=== PATIENT | male | born 1975 | race Caucasian/White ===

== ENCOUNTER → 2020-04-04 14:10 | Outpatient (BNVA) | payer OTHER, SELFPAY | PROVIDERS: Family Provider Thoracic Surgery (Cardiothoracic Vascular Surgery); PCP Nurse Practitioner Family; Visit Provider Nurse Practitioner Family | DX: I10 Essential (primary) hypertension (principal); E55.9 Vitamin D deficiency, unspecified; E78.2 Mixed hyperlipidemia; R19.7 Diarrhea, unspecified | CPT/HCPCS: 80053; 80061; 81003; 82306; 83036; 84443; 85025 ==

== ENCOUNTER 2020-04-11 15:57 | Outpatient (CLI) | payer OTHER, SELFPAY ==
--- NOTE | 2020-04-11 16:11 | XR_ITS ---
WS: [id number] EXAM: RIGHT KNEE: 3 VIEWS DATE OF EXAMINATION: 04/11/2020, 1621 hours COMPARISON: Left knee exam from the same date. HISTORY: Patient is 45 years old with chronic right knee pain. FINDINGS: Bone density is normal in appearance. There are slight changes of arthritis in the knee mainly in the medial and patellofemoral compartments. No joint effusion is seen. No fracture, lytic or blastic pro cess. Extra articular soft tissues are unremarkable XR/XR knee RT 3V* [id number] IMPRESSION: Slight changes of osteoarthritis in the right knee. No acute abnormality.
--- NOTE | 2020-04-11 16:16 | XR_ITS ---
WS: [id number] EXAM: LEFT KNEE: 3 VIEWS DATE OF EXAMINATION: 04/11/2020, 1621 hours COMPARISON: None. HISTORY: Patient is 45 years old with chronic left knee pain. FINDINGS: Bone density is normal in appearance. There are slight changes of arthritis in the knee mainly in the medial and patellofemoral compartments. No joint effusion is seen. No fracture, lytic or blastic pro cess. Extra articular soft tissues are unremarkable XR/XR knee LT 3V* [id number] IMPRESSION: Slight changes of osteoarthritis in the left knee. No acute abnormality.
== END 2020-04-11 15:58 | disposition home or self-care (01) ==
LOC: RAD 16:00
PROVIDERS: PCP Nurse Practitioner Family; Visit Provider Nurse Practitioner Family
DX: G89.29 Other chronic pain (principal); M17.12 Unilateral primary osteoarthritis, left knee
CPT/HCPCS: 73562

== ENCOUNTER 2021-05-03 10:50 | Emergency (ER) | payer OTHER, SELFPAY ==
[2021-05-03 11:17] VITALS: BP 163/90; PULSE 68; RESP 16; TEMP 36.6; O2SAT 95; BMI 54.2
--- NOTE | 2021-05-03 11:33 | XR_ITS ---
WS: [id number] Portable AP upright chest, 05/03/2021 Clinical Data: presyncope Comparison: PA and lateral chest, 05/07/2019. Findings: No nodules, masses or effusions are seen. The heart is slightly enlarged. The pulmonary vas cularity is not increased. No pneumonia or pneumothorax is seen. Old bilateral rib fractures are note d. XR/XR chest 1V portable [id number] Impression: Cardiomegaly.
--- NOTE | 2021-05-03 13:34 | ECG_ITS ---
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 Measurements Intervals [place] Rate: 61 P: 35 AK: 167 QRS: 11 QRSD: 98 T: 18 QT: 436 QTc: 440 Interpretive Statements SINUS RHYTHM No previous ECG available for comparison Electronically Signed On 05-04-2021 9:30:15 CDT by Dasia Fortune M.D. [id number] f
--- NOTE | 2021-05-03 14:58 | W.ED.SYNCOPE ---
HPI - Syncope General: Chief Complaint: Syncope Stated Complaint: near syncope Time Seen by Provider: 05/03/21 14:54 History of Present Illness: HPI narrative: 46 yo morbidly obese male presents to the emergency room after an episode of near syncope while he was at work today. He had stood up he got lightheaded dizzy felt diaphoretic very nauseous never did completely lose consciousness. He has a chest pain work-up ongoing is possible getting a stress test soon. MD complaint: felt faint and almost passed out Onset (ago): hour(s) -: second(s) Prodromal symptoms: lightheaded, diaphoresis and nausea/vomiting Witnessed: Yes - by Bystander Context: during exertion Injuries sustained associated with event: none Associated symptoms: Reports lightheadedness, nausea and short of breath; Deny abdominal pain, chest pain, fever(s), headache(s), vertigo or weakness Treatments prior to arrival: none Review of Systems Const: Denies: fever(s) Card: Reports: lightheadedness; Denies: chest pain GI: Reports: nausea; Denies: abdominal pain Neuro: Denies: headache(s) or vertigo PFSH ED PFSH: Medical History Adult-onset obesity Anxiety Essential hypertension Gastro-esophageal reflux Low back strain Lower respiratory infection Mixed hyperlipidemia Osteoarthritis Shortness of breath Vitamin D deficiency Surgical History History of tonsillectomy and adenoidectomy Social History Smoking and tobacco status: never smoked Second hand smoke exposure: No Smoking risk assessment/counseling performed?: No Alcohol intake: never Desire information about alcohol rehabilitation?: No Counseling given: No Desire information about substance/drug rehabilitation?: No Counseling given: No 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 Physical Exam Const: COMMON NORMALS: no acute distress GENERAL APPEARANCE: cooperative and comfortable ORIENTATION/CONSCIOUSNESS: Yes awake, Yes oriented to person, Yes oriented to place and Yes oriented to time HENMT: COMMON NORMALS: normocephalic, atraumatic and hearing grossly normal bilaterally HEAD & SCALP: normocephalic and atraumatic Neck/C-Spine: COMMON NORMALS: no JVD Resp: COMMON NORMALS: normal respiratory effort, No retractions, No use of accessory muscles and clear to auscultation bilaterally AUSCULTATION: clear to auscultation bilaterally Cardio: COMMON NORMALS: no JVD, regular rate, regular rhythm and No murmurs present (Cardio) RATE: regular rate RHYTHM: regular rhythm GI: COMMON NORMALS: Soft to palpation and No hepatosplenomegaly present AUSCULTATION: Yes normoactive bowel sounds PALPATION: Yes Soft to palpation, No Tenderness to palpation present (GI), No Guarding due to palpation present (GI) and Yes No hepatosplenomegaly present Extremity: COMMON NORMALS: normal to inspection, capillary refill normal, no clubbing, cyanosis or edema, no calf tenderness and no pedal edema Neuro: SENSORIUM/ORIENTATION: Yes oriented to person, Yes oriented to place and Yes oriented to time Skin: COMMON NORMALS: no rashes or lesions noted GENERAL SKIN EXAM: no rashes or lesions noted Course Vital Signs: Vital signs: Vital Signs Temperature 98 F 05/03/21 11:17 Pulse Rate 64 05/03/21 17:47 Respiratory Rate 14 05/03/21 17:47 Blood Pressure 121/103 05/03/21 17:47 Pulse Oximetry 100 05/03/21 17:47 MDM - Syncope MDM Narrative: Medical decision making narrative: Enzymes are negative. EKG is unremarkable reviewed labs imaging and EKGs on the chart. Discussed with the patient he has an upcoming stress test scheduled. We will go ahead and let him complete that if he has any recurrent symptoms return to the emergency room otherwise continue all his current medications. Avoid strenuous activities Lab Data: Labs: Lab Results 05/03/21 05/03/21 05/03/21 Range/Units 15:00 15:00 15:00 WBC 10.3 H (4.0-10.0) 10^3/ uL RBC 4.88 (4.1-5.3) 10^6/u L Hgb 13.7 (11.7-16.6) g/dL Hct 42.1 (42.0-52.0) % MCV 86.3 (80-94) fl MCH 28.1 (28.0-34.0) pg MCHC 32.5 (30.0-36.0) g/dL RDW 12.9 (12.1-15.1) % Plt Count 254 (130-400) 10^3/c mm MPV 9.5 (7.4-10.4) fL Neut % (Auto) 71.8 % Lymph % (Auto) 20.6 % Towns % (Auto) 5.3 % Eos % (Auto) 1.4 % Baso % (Auto) 0.6 % Neut # (Auto) 7.41 (1.8-7.7) 10^3/u L Lymph # (Auto) 2.1 (0.8-4.8) 10^3/u L Towns # (Auto) 0.6 (0.2-0.9) 10^3/u L Eos # (Auto) 0.1 (0.0-0.8) 10^3/u L Baso # (Auto) 0.1 (0.0-0.1) 10^3/u L Nucleated RBC % (a uto) 0 % Nucleated RBCs # 0.0 /100WBC Sodium 139 (136-145) mmol/L Potassium 4.0 (3.5-5.1) mmol/L Chloride 99 (98-107) mmol/L Carbon Dioxide 29 (22-29) mmol/L Anion Gap 15.0 (5-19) BUN 13 (6-20) mg/dL Creatinine 0.7 (0.7-1.2) mg/dL GFR Calculation 120.4 (90-130) mL/min Glucose 86 (65-115) mg/dL Calculated Osmolal ity 287 (285-295) mOsm/k g Calcium 9.0 (8.5-10.5) mg/dL Total Bilirubin 0.3 (0.15-1.2) mg/dL AST 20 (0-40) U/L ALT 23 (0-41) U/L Alkaline Phosphata se 95 (40-130) IU/L Troponin T Baselin e 6 (0-15) ng/L Troponin T 120 Min [place] (0-15) ng/L Delta Troponin T (0-10) ABS# Total Protein 7.1 (6.6-8.7) g/dL Albumin 4.2 (3.5-5.2) g/dL Globulin 2.9 (1.3-4.6) g/dL TSH 0.55 (0.27-4.20) uIU/ mL 05/03/21 Range/Units 16:48 WBC (4.0-10.0) 10^3/ uL RBC (4.1-5.3) 10^6/u L Hgb (11.7-16.6) g/dL Hct (42.0-52.0) % MCV (80-94) fl MCH (28.0-34.0) pg MCHC (30.0-36.0) g/dL RDW (12.1-15.1) % Plt Count (130-400) 10^3/c mm MPV (7.4-10.4) fL Neut % (Auto) % Lymph % (Auto) % Towns % (Auto) % Eos % (Auto) % Baso % (Auto) % Neut # (Auto) (1.8-7.7) 10^3/u L Lymph # (Auto) (0.8-4.8) 10^3/u L Towns # (Auto) (0.2-0.9) 10^3/u L Eos # (Auto) (0.0-0.8) 10^3/u L Baso # (Auto) (0.0-0.1) 10^3/u L Nucleated RBC % (a uto) % Nucleated RBCs # /100WBC Sodium (136-145) mmol/L Potassium (3.5-5.1) mmol/L Chloride (98-107) mmol/L Carbon Dioxide (22-29) mmol/L Anion Gap (5-19) BUN (6-20) mg/dL Creatinine (0.7-1.2) mg/dL GFR Calculation (90-130) mL/min Glucose (65-115) mg/dL Calculated Osmolal ity (285-295) mOsm/k g Calcium (8.5-10.5) mg/dL Total Bilirubin (0.15-1.2) mg/dL AST (0-40) U/L ALT (0-41) U/L Alkaline Phosphata se (40-130) IU/L Troponin T Baselin e (0-15) ng/L Troponin T 120 Min [place] 6.00 (0-15) ng/L Delta Troponin T 0 (0-10) ABS# Total Protein (6.6-8.7) g/dL Albumin (3.5-5.2) g/dL Globulin (1.3-4.6) g/dL TSH (0.27-4.20) uIU/ mL Discharge Plan Discharge Patient Disposition: Home Clinical Impression: Near syncope, Atypical chest pain Condition: Stable Prescriptions: No Action nitroglycerin 0.4 mg tablet, sublingual 0.4 mg sublingual Q5M PRN (Reason: chest pain) 30 Days Qty: 30 RF: 0 Calcium + D 600 mg(1,500mg) -200 unit Tablet 1 tab PO DAILY RF: 0 atorvastatin 40 mg tablet 40 mg PO QAM RF: 0 atenolol-chlorthalidone 100-25 mg tablet 1 tab PO QAM RF: 0 omeprazole 40 mg capsule,delayed release(DR/EC) 40 mg PO QAM RF: 0 aspirin 81 mg tablet,delayed release (DR/EC) 81 mg PO QAM RF: 0 paroxetine HCl 20 mg tablet 10 mg PO QAM RF: 0 Lasix 20 mg tablet 20 mg PO DAILY PRN (Reason: Edema) RF: 0 Ventolin HFA 90 mcg/actuation HFA aerosol inhaler 1 puff inhalation Q4H PRN (Reason: shortness of breath or wheezing) RF: 0 Discharge Orders: Discharge ED (Routine); Ordered 05/03/21 Ordered By: Paul Pate Referrals: FORREST Almazan, AUTO BODY MECHANIC [Primary Care Provider] - Patient Instructions: Opioid Safety Activity Restrictions/Additional Instructions: Complete stress test as previously scheduled return if you have further problems. Coding Level of Care Code ED Automotive Parts Salesperson for Ky Williamson
[2021-05-03 15:00] VITALS: BP 134/63; PULSE 65; RESP 18; O2SAT 99
[2021-05-03 15:19] LABS: Basophils # 0.1 10^3/uL (0.0-0.1); Basophils % 0.6 %; Eosinophils # 0.1 10^3/uL (0.0-0.8); Eosinophils % 1.4 %; Hematocrit 42.1 % (42.0-52.0); Hemoglobin 13.7 g/dL (11.7-16.6); Lymphocytes # 2.1 10^3/uL (0.8-4.8); Lymphocytes % 20.6 %; Mean Corpuscular HGB Conc 32.5 g/dL (30.0-36.0); Mean Corpuscular Hemoglobin 28.1 pg (28.0-34.0); Mean Corpuscular Volume 86.3 fl (80-94); Mean Platelet Volume 9.5 fL (7.4-10.4); Monocytes # 0.6 10^3/uL (0.2-0.9); Monocytes % 5.3 %; Neutrophils # 7.41 10^3/uL (1.8-7.7); Neutrophils % 71.8 %; Nucleated Red Blood Cells % 0 %; Platelet Count 254 10^3/cmm (130-400); Red Blood Count 4.88 10^6/uL (4.1-5.3); Red Cell Distribution Width 12.9 % (12.1-15.1); White Blood Count 10.3 10^3/uL (4.0-10.0)
[2021-05-03 15:32] VITALS: PULSE 63; RESP 18; O2SAT 98
[2021-05-03 15:43] LABS: Troponin(5th) Baseline 6 ng/L (0-15)
[2021-05-03 15:52] LABS: Alanine Aminotransferase 23 U/L (0-41); Albumin Level 4.2 g/dL (3.5-5.2); Alkaline Phosphatase 95 IU/L (40-130); Aspartate Amino Transferase 20 U/L (0-40); Blood Urea Nitrogen 13 mg/dL (6-20); Carbon Dioxide 29 mmol/L (22-29); Chloride 99 mmol/L (98-107); Globulin 2.9 g/dL (1.3-4.6); Glomerular Filtration Rate 120.4 mL/min (90-130); Glucose 86 mg/dL (65-115); Osmolality Calculated 287 mOsm/kg (285-295); Sodium 139 mmol/L (136-145); Thyroid Stimulating Hormone 0.55 uIU/mL (0.27-4.20); Total Bilirubin 0.3 mg/dL (0.15-1.2); Total Protein 7.1 g/dL (6.6-8.7)
[2021-05-03 17:00] VITALS: PULSE 62; RESP 18; O2SAT 99
[2021-05-03 17:13] VITALS: BP 169/81; PULSE 59; RESP 18; O2SAT 99
[2021-05-03 17:33] LABS: Troponin 5 2HR Delta 0 ABS# (0-10)
[2021-05-03 17:47] VITALS: BP 121/103; PULSE 64; RESP 14; O2SAT 100
== END 2021-05-03 18:10 | disposition home or self-care (01) ==
PROVIDERS: Physician Assistant; Emergency Provider Family Medicine; PCP Nurse Practitioner Family
DX: R55 Syncope and collapse (principal); R07.89 Other chest pain; Z79.82 Long term (current) use of aspirin; I10 Essential (primary) hypertension; E78.2 Mixed hyperlipidemia
CPT/HCPCS: 71045; 80053; 84443; 84484; 85025; 93005; 99284

== ENCOUNTER 2021-05-11 07:13 | Outpatient (CLI) | payer OTHER, SELFPAY ==
--- NOTE | 2021-05-11 07:34 | ECG_ITS ---
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 Interpretive Statements NAME OF STUDY: LEXISCAN SESTAMIBI STRESS TEST INDICATION: Chest Pain PROCEDURE: At the baseline, the blood pressure was 147/78 mmHg with a heart rate of 65 bpm. The electrocardiogram showed normal sinus rhythm with frequent isolated PVCs. The Lexiscan was infused over a period of 20 seconds. A total of 0.4 milligrams of Lexiscan was infused. The stress phase was continued for a total of 5 minutes. Heart rate at the end of the stress phase was 67 bpm with a blood pressure of 137/83 mmHg. The EKG at the peak infusion revealed sinus rhythm with no significant ST-T wave changes. Isolated PVCs noted during Lexiscan infusion. The study was terminated due to protocol completion. Sestamibi was injected 20 seconds after the Lexiscan infusion. Blood pressure at the end of the recovery phase was 120/80 mmHg with a heart rate of 64 beats per minute. Isolated PVCs noted in recovery. CONCLUSION: 1. Normal EKG response to LexiScan infusion. 2. No LexiScan induced chest pain or cardiac arrhythmia. 3. Normal blood pressure and heart rate response. 4. Sestamibi/sestamibi perfusion scan pending; see separate report. Electronically Signed On 05-13-2021 14:59:14 CDT by Dasia Fortune M.D. [id number]
--- NOTE | 2021-05-11 07:34 | NMCV_ITS ---
NM kinga perf SPECT r/s* [id number] Vlaidmir Archibald Age: 46 Gender: M : 1975 Exam Date: 05/11/2021 08:26 Ordering Phys: Natalio Van MD Technologist: SUDHEER Hill Exam Location: [facility] Indications: CHEST PAIN STRESS TEST Please see separate stress test report in [facility] for full findings IMAGE PROTOCOL Rest/Stress 1 Lexiscan Day Radiopharmaceutical Dose (mCi) Administration Site Administered by Rest: Tc-99m 11.0 IV Veronica Simental HISTOLOGIST TECHNOLOGIST Sestamibi Stress:Tc-99m 33.0 IV Veronica Simental, HISTOLOGIST TECHNOLOGIST Sestamibi Rest: 11-May-2021 60 Discovery 630 Stress: 11-May-2021 30 Discovery 630 0.4mg Lexiscan. Images obtained in supine and prone position. SPECT RESULTS Technical Quality: Excellent Raw Data Analysis: Normal Image Corrections: No attenuation or motion correction applied Summed Stress Score: 0 Summed Rest Score: 0 Summed Difference Score: 0 PERFUSION FINDINGS Patchy area of decreased tracer uptake in mid inferior and apical anterior reid with improved tracer uptake in stress images. FUNCTIONAL RESULTS (calculated via Gated SPECT) Stress Image LV EF (%): 75 Stress EDV (mL):138 TID: 1.02 Stress ESV (mL):35 FUNCTIONAL FINDINGS: The left ventricle is normal in size. Transient Ischemia Dilatation of 1. There is normal left ventricular systolic function. The left ventricular ejection fraction is normal with a value of 75%. There is normal left ventricular wall thickening with no regional wall motion abnormality. Normal end diastolic and end systolic volumes. IMPRESSIONS 1. Myocardial perfusion imaging is normal. 2. Overall left ventricular systolic function is normal without regional wall motion abnormalities. 3. The left ventricular ejection fraction is normal with a value of 75%. 4. No coronary ischemia based on this study. Dasia Fortune MD (Electronically Signed) Final Date: 13 May 2021 12:13 S
[2021-05-11 07:35] VITALS: BMI 54.1
--- NOTE | 2021-05-11 07:38 | USCV_ITS ---
Vladimir Archibald Age: 46 Gender: M : 1975 Exam Date: 05/11/2021 07:50 Ordering Phys: Natalio Van MD Technologist: Martell Young Exam Location: [facility] [place] Indication: sob, chest BP: 113 / 68 HR: 63 Rhythm: Sinus Technical Quality: Technically difficult study MEASUREMENTS (Male / Female) Normal Values 2D ECHO LV Diastolic Diameter PLAX 3.6 cm 4.2 - 5.9 / 3.9 - 5.3 cm LV Systolic Diameter PLAX 2.5 cm IVS Diastolic Thickness 1.8 cm 0.6 - 1.0 / 0.6 - 0.9 cm IVS Systolic Thickness 2.2 cm LVPW Diastolic Thickness 1.6 cm 0.6 - 1.0 / 0.6 - 0.9 cm LVPW Systolic Thickness 2.1 cm LVOT Diameter 2.1 cm LV Ejection Fraction 2D Teich 62.3 % LV Ejection Fraction MOD 2C 74.0 % LV Ejection Fraction 2C AL 74.6 % LA Diameter 3.5 cm Aorta at Sinotubular Diameter 2.9 cm DOPPLER AV Peak Velocity 130.0 cm/s LVOT Peak Velocity 128.0 cm/s AV Area Cont Eq vti 3.6 cm squared AV Area Cont Eq pk 3.3 cm squared MV Area PHT 5.0 cm squared Mitral E to A Ratio 1.2 MV E' Velocity 83.0 cm/s Mitral E to LV E' Septal Ratio 7.5 TR Peak Velocity 142.5 cm/s TR Peak Gradient 8.1 mmHg TV Peak E Velocity 92.0 cm/s Right Atrial Pressure 3.0 mmHg Pulmonary Artery Systolic Pressu 11.1 mmHg FINDINGS Left Ventricle Normal left ventricular cavity size and increased left ventricular wall thickness. Mild concentric left ventricular hypertrophy. Normal left ventricular systolic function. Left ventricular ejection fraction is estimated at 65-70 %. Normal diastolic function. Right Ventricle Normal right ventricular size and systolic function. RVSP could not be calculated due to incomplete tricuspid regurgitation velocity profile. Right Atrium Normal right atrial size. Left Atrium Left atrium not well visualized. Mitral Valve Mitral valve not well visualized. Aortic Valve Aortic valve not well visualized. No aortic valve stenosis. No aortic valve regurgitation. Tricuspid Valve Tricuspid valve not well visualized. Pulmonic Valve Pulmonic valve not well visualized. Pericardium No pericardial effusion. Aorta Aorta not well visualized. CONCLUSIONS 1. This is a technically difficult study. Ultrasound enhancing agent Optison was used per protocol. 2. Normal left ventricular cavity size and systolic function. Mild concentric left ventricular hypertrophy. Left ventricular ejection fraction is estimated at 65-70 %. Normal diastolic function. 3. Normal right ventricular size and systolic function. 4. Valve grossly appear normal. 5. No prior similar studies to compare. Dasia Fortune MD (Electronically Signed) Final Date: 13 May 2021 11:47 Amended: 13 May 2021 12:04 C
[2021-05-11] MEDS: regadenoson 0.4 Mg/5 ml Syringe IVP (09:03)
[2021-05-11 09:15] VITALS: BP 137/81; PULSE 70
== END 2021-05-11 07:14 | disposition home or self-care (01) ==
LOC: CDL 07:18
PROVIDERS: PCP Nurse Practitioner Family; Visit Provider Family Medicine
DX: R07.9 Chest pain, unspecified (principal); R06.02 Shortness of breath
CPT/HCPCS: 78452; 80053; 83036; 93017; A9500; C8929; J2785

== ENCOUNTER → 2021-06-20 16:01 | Outpatient (BNVA) | payer OTHER, SELFPAY | PROVIDERS: PCP Nurse Practitioner Family; Visit Provider Nurse Practitioner Family | DX: I10 Essential (primary) hypertension (principal) | CPT/HCPCS: 80048 ==

== ENCOUNTER → 2021-09-12 14:36 | Outpatient (BNVA) | payer OTHER, SELFPAY | PROVIDERS: PCP Nurse Practitioner Family; Visit Provider Nurse Practitioner Family | DX: Z20.822 Contact with and (suspected) exposure to COVID-19 (principal) | CPT/HCPCS: 87635 ==

== ENCOUNTER → 2021-09-13 10:14 | Outpatient (BNVA) | payer OTHER, SELFPAY | PROVIDERS: PCP Nurse Practitioner Family; Visit Provider Nurse Practitioner Family | DX: R68.89 Other general symptoms and signs (principal) | CPT/HCPCS: 87400 ==

== ENCOUNTER → 2022-03-21 09:45 | Outpatient (BNVA) | payer OTHER, SELFPAY | PROVIDERS: PCP Nurse Practitioner Family; Visit Provider Nurse Practitioner Family | DX: Z20.822 Contact with and (suspected) exposure to COVID-19 (principal); I10 Essential (primary) hypertension; E78.2 Mixed hyperlipidemia; F41.9 Anxiety disorder, unspecified | CPT/HCPCS: 80053; 80061; 87635 ==

== ENCOUNTER 2022-04-11 13:13 | Outpatient (CLI) | payer OTHER, SELFPAY ==
--- NOTE | 2022-04-11 13:23 | XR_ITS ---
WS: [id number] Chest 2 views, 04/11/2022 Clinical Data: R06.02 - Shortness of breath Comparison: Portable chest, 05/03/2021. Findings: No nodules, masses or effusions are seen. The heart is normal. The pulmonary vascularity is not increased. No pneumonia or pneumothorax is seen. XR/XR chest 2V* [id number] Impression: Negative chest.
== END 2022-04-11 13:14 | disposition home or self-care (01) ==
LOC: RAD 13:15
PROVIDERS: PCP Nurse Practitioner Family; Visit Provider Nurse Practitioner Family
DX: R06.02 Shortness of breath (principal)
CPT/HCPCS: 71046

== ENCOUNTER → 2022-05-07 13:58 | Outpatient (BNVA) | payer OTHER, SELFPAY | PROVIDERS: PCP Nurse Practitioner Family; Visit Provider Nurse Practitioner Family | DX: N39.0 Urinary tract infection, site not specified (principal); M54.50 Low back pain, unspecified | CPT/HCPCS: 81000 ==

== ENCOUNTER 2022-05-08 08:43 | Outpatient (CLI) | payer OTHER, SELFPAY ==
--- NOTE | 2022-05-08 08:56 | XR_ITS ---
WS: [id number] XR lumbar spine 2-3V* [id number] REASON FOR EXAM: M54.50 - Low back pain, unspecified FINDINGS: Mild straightening of the normal lordosis of the lumbar spine. No significant focal abnormality of the lumbar vertebrae. Mild narrowing of the L1-L2, L2-L3, and L5-S1 disc space. Small anterior osteophytes L1-S1. 4 mm of anterolisthesis of L4 in relation to L5. 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 XR/XR lumbar spine 2-3V* [id number] IMPRESSION: Degenerative spondylosis as above. Possible congenital narrowing of the lumbar canal as above.
== END 2022-05-08 08:44 | disposition home or self-care (01) ==
PROVIDERS: PCP Nurse Practitioner Family; Visit Provider Nurse Practitioner Family
DX: M54.50 Low back pain, unspecified (principal); M47.816 Spondylosis without myelopathy or radiculopathy, lumbar region
CPT/HCPCS: 72100

== ENCOUNTER 2022-08-26 06:00 | Outpatient (RCR) | payer OTHER, SELFPAY | END 2022-09-25 23:59 | disposition home or self-care (01) | LOC: WPT 06:00 | PROVIDERS: PCP Nurse Practitioner Family; Visit Provider Orthopaedic Surgery | DX: M54.50 Low back pain, unspecified (principal) | CPT/HCPCS: 97110; 97112; 97161; 97530 ==

== ENCOUNTER → 2022-09-06 14:11 | Outpatient (BNVA) | payer OTHER, SELFPAY | PROVIDERS: PCP Nurse Practitioner Family; Referring Provider Nurse Practitioner Family; Visit Provider Orthopaedic Surgery | DX: M51.16 Intervertebral disc disorders with radiculopathy, lumbar region (principal) | CPT/HCPCS: 72110 ==

== ENCOUNTER 2022-09-26 06:00 | Outpatient (RCR) | payer OTHER, SELFPAY | END 2022-10-23 23:59 | disposition home or self-care (01) | LOC: WPT 06:00 | PROVIDERS: PCP Nurse Practitioner Family; Visit Provider Orthopaedic Surgery | DX: M54.50 Low back pain, unspecified (principal) | CPT/HCPCS: 97110; 97112; 97530 ==

== ENCOUNTER → 2023-01-23 16:10 | Outpatient (BNVA) | payer MEDICAID, SELFPAY | PROVIDERS: PCP Nurse Practitioner Family; Visit Provider Family Medicine | DX: E87.70 Fluid overload, unspecified (principal) | CPT/HCPCS: 80048 ==

== ENCOUNTER → 2023-08-01 15:51 | Outpatient (BNVA) | payer MEDICAID, SELFPAY | PROVIDERS: PCP Nurse Practitioner Family; Visit Provider Nurse Practitioner Family | DX: I49.3 Ventricular premature depolarization (principal); Z82.49 Family history of ischemic heart disease and other diseases of the circulatory system; I10 Essential (primary) hypertension; R06.02 Shortness of breath; F41.9 Anxiety disorder, unspecified; E78.2 Mixed hyperlipidemia; E55.9 Vitamin D deficiency, unspecified; Z79.899 Other long term (current) drug therapy; Z12.5 Encounter for screening for malignant neoplasm of prostate | CPT/HCPCS: 80053; 80061; 81003; 82306; 83036; 84443; 85025; G0103 ==

== ENCOUNTER → 2023-08-05 11:51 | Outpatient (BNVA) | payer MEDICAID, SELFPAY | PROVIDERS: PCP Nurse Practitioner Family; Visit Provider Nurse Practitioner Family | DX: F41.9 Anxiety disorder, unspecified (principal); E78.2 Mixed hyperlipidemia; I10 Essential (primary) hypertension; E55.9 Vitamin D deficiency, unspecified; Z79.899 Other long term (current) drug therapy; Z12.5 Encounter for screening for malignant neoplasm of prostate | CPT/HCPCS: 81003 ==

== ENCOUNTER → 2023-08-13 09:35 | Outpatient (BNVA) | payer MEDICAID, SELFPAY | PROVIDERS: PCP Nurse Practitioner Family; Visit Provider Nurse Practitioner Family | DX: R19.7 Diarrhea, unspecified (principal); R68.89 Other general symptoms and signs; E55.9 Vitamin D deficiency, unspecified; K52.9 Noninfective gastroenteritis and colitis, unspecified | CPT/HCPCS: 87400; 87426 ==

== ENCOUNTER 2024-03-25 09:44 | Outpatient (CLI) | payer MEDICAID, SELFPAY | END 2024-03-25 09:45 | disposition home or self-care (01) | LOC: SLEEP 09:44 | PROVIDERS: PCP Nurse Practitioner Family; Visit Provider Nurse Practitioner Family | DX: G47.33 Obstructive sleep apnea (adult) (pediatric) (principal) | CPT/HCPCS: G0399 ==

== ENCOUNTER → 2024-03-31 11:36 | Outpatient (BNVA) | payer MEDICAID, SELFPAY | PROVIDERS: PCP Nurse Practitioner Family; Visit Provider Nurse Practitioner Family | DX: Z79.899 Other long term (current) drug therapy (principal); I10 Essential (primary) hypertension | CPT/HCPCS: 85025 ==

== ENCOUNTER → 2024-04-02 09:47 | Outpatient (BNVA) | payer MEDICAID, SELFPAY | PROVIDERS: PCP Nurse Practitioner Family; Visit Provider Nurse Practitioner Family | DX: I10 Essential (primary) hypertension (principal); Z79.899 Other long term (current) drug therapy | CPT/HCPCS: 80053; 82306; 84439; 84443; 85025; 86376 ==

== ENCOUNTER → 2024-04-28 08:35 | Outpatient (BNVA) | payer MEDICAID, SELFPAY | PROVIDERS: PCP Nurse Practitioner Family; Visit Provider Nurse Practitioner Family | DX: R50.9 Fever, unspecified (principal) | CPT/HCPCS: 87426 ==

== ENCOUNTER 2024-09-28 20:00 | Outpatient (CLI) | payer MEDICAID, SELFPAY | END 2024-09-28 20:01 | disposition home or self-care (01) | LOC: SLEEP 21:46 | PROVIDERS: PCP Nurse Practitioner Family; Visit Provider Nurse Practitioner Family | DX: G47.33 Obstructive sleep apnea (adult) (pediatric) (principal) | CPT/HCPCS: 95811 ==

== ENCOUNTER → 2025-04-23 09:37 | Outpatient (BNVA) | payer MEDICARE, MEDICAID, SELFPAY | PROVIDERS: PCP Nurse Practitioner Family; Visit Provider Nurse Practitioner Family | DX: I10 Essential (primary) hypertension (principal); Z12.5 Encounter for screening for malignant neoplasm of prostate; E55.9 Vitamin D deficiency, unspecified; Z68.43 Body mass index [BMI] 50.0-59.9, adult; Z79.899 Other long term (current) drug therapy; F41.9 Anxiety disorder, unspecified; R07.9 Chest pain, unspecified | CPT/HCPCS: 80053; 80061; 81003; 82306; 83036; 84443; 85025; G0103 ==

== ENCOUNTER → 2025-08-10 09:53 | Outpatient (BNVA) | payer MEDICARE, SELFPAY | PROVIDERS: PCP Nurse Practitioner Family; Visit Provider Nurse Practitioner Family | DX: I10 Essential (primary) hypertension (principal) | CPT/HCPCS: 80053 ==